=== PATIENT | male | born 1965 | race Caucasian/White ===

== ENCOUNTER 2020-09-08 15:36 | Emergency (ER) | payer MEDICAID, SELFPAY ==
[2020-09-08 15:45] VITALS: BP 134/89; PULSE 93; RESP 18; O2SAT 94; BMI 27.1
--- NOTE | 2020-09-08 16:30 | ECG_ITS ---
Test Reason : ETOH Blood Pressure : / mmHG Vent. Rate : 116 BPM Atrial Rate : 116 BPM P-R Int : 142 ms QRS Dur : 090 ms QT Int : 336 ms P-R-T Axes : 041 043 059 degrees QTc Int : 467 ms Sinus tachycardia Nonspecific ST and T wave abnormality Borderline ECG No previous ECGs available Referred By: Chela Zepeda Electronically Signed By:LALY BUSTILLO
--- NOTE | 2020-09-08 16:48 | ED_ITS ---
HPI - Alcohol General Chief Complaint: ETOH/Substance Use Stated Complaint: etoh Time Seen by Provider: 09/08/20 16:26 Source: patient and family Mode of arrival: ambulatory Limitations: no limitations History of Present Illness HPI narrative: 54-year-old male here with alcohol intoxication. He is here with family revised most of history. They tell me that for quite some time patient has been drinking 2-3 pt of hard liquor daily. His last use was just prior to arrival. He has not been eating or drinking much regular water and food. He denies additional substance use. There is no history of trauma or falls. He has been complaining of vague suicidal ideations per the sister and he admits to this today. Denies plan. No HI or hallucinations. He is seeking detox Related Data Allergies Allergy/AdvReac Type Severity Reaction Status Date / Time No Known Allergies Allergy Verified 09/08/20 15:45 [No Known Allergies*] Review of Systems Review of Systems: Yes all other systems are reviewed and are negative Constitutional: Constitutional: Reports no additional constitutional complaints, Denies body ache(s), Denies chills, Denies fever(s), Denies headache(s) and Denies weakness Eyes: Eyes: Reports no additional eye complaints and Denies change in vision ENT: Reports system reviewed and no additional complaints, except as documented, Denies dizziness, Denies headache(s), Denies nasal congestion, Denies nasal discharge and Denies neck pain Cardiovascular: Cardiovascular: Reports no additional cardiovascular complaints, Denies chest pain, Denies leg edema and Denies dyspnea Respiratory: Respiratory: Reports no additional respiratory complaints, Denies cough and Denies dyspnea Gastrointestinal: Gastrointestinal: Reports no additional gastrointestinal complaints, Denies abdominal pain, Denies diarrhea, Denies nausea and Denies vomiting Genitourinary: Genitourinary: Denies urinary incontinence Musculoskeletal: Musculoskeletal: Reports no additional musculoskeletal complaints, Denies back pain, Denies arthralgias, Denies joint swelling, Denies neck pain, Denies numbness and Denies tingling Integumentary/Breasts: Skin/Breast: Reports system reviewed and no additional complaints, except as docu and Denies rash Neurologic: Reports system reviewed and no additional complaints, except as documented, Denies Abnormal speech present, Denies dizziness, Denies headache(s) , Denies numbness, Denies tingling and Denies weakness Psychiatric: Psychiatric: Denies anxiety, Denies depression, Denies hallucinations, Denies tactile hallucinations, Denies homicidal ideation and Reports suicidal ideation [facility] Past Medical History Attestation statement: The following information was validated with the patient. Source: old records reviewed and nursing notes reviewed Medical History H/O alcohol dependence PTSD (post-traumatic stress disorder) Social History Social History Advance Directives: No Advance Directives Information Provided: Yes Physical Exam Vital Signs: Vital Signs: Last Vital Signs Temp 97.8 F 09/08/20 20:41 Pulse 118 H 09/08/20 20:41 Resp 16 09/08/20 20:41 BP 139/91 H 09/08/20 20:41 Pulse Ox 99 09/08/20 20:41 Body Mass Index 27.1 Const: Other: +alcohol on breath General: cooperative and comfortable Orientation/consciousness: patient oriented x3 Limitations: no limitations HENMT: Head: Yes normal to inspection Ears: hearing grossly normal bilaterally General nose exam: Normal external nose present Face and sinus: Yes normal facial exam Mouth: Normal oral and palatal mucosa present Throat: Yes posterior oropharynx normal Eyes: General: appearance normal, both eyes and all related structures Pupils: Equal, round and reactive pupils present Neck: Neck: Yes normal visual inspection Chest: Chest palpation & inspection: normal inspection of the chest Resp: Effort & Inspection: normal respiratory effort Auscultation: clear to auscultation bilaterally Cardio: Rate: regular rate Rhythm: regular rhythm Peripheral pulses: Peripheral pulses 2+ throughout GI: Inspection: Yes normal to inspection Palpation (GI): Soft to palpation and nontender Auscultation: normal bowel sounds Back/Spine/Pelvis: Thoracic/Lumbar Spine: thoracic and lumbar spine normal to inspection Skin: General skin exam: no rashes or lesions noted Neuro: General: patient oriented x3, no focal motor deficits and normal sensation to monofilament Cranial nerves: Yes Equal, round and reactive pupils present Cognition (Neuro): normal cognition Speech: No Abnormal speech present Gait exam (Neuro): Normal gait present Motor exam (neuro): 5/5 motor strength present throughout Extrem: General: Yes normal to inspection Course Course Course Narrative: Patient here with alcohol intoxication, history of drinking every day for quite some time seeking detox. Also vague SI. No physical complaints. No reports of trauma. Will check labs, EKG, drug screen. Will have crisis come evaluate patient once he is clinically sober. 1849-Labs show alcohol level 375. pt has refused EKG and LEWIS. Wanting to leave multiple times, responds well to re-direction. Given Ativan for anxiety. Section 12 placed on chart. Patient placed in physican observation pending sober re- eval, discussion with crisis. Per sister patient has bed at [facility] in [place] once medically cleared however d/t SI statements will need crisis evaluation. 2099-Sign out to night team pending above. MDM - Alcohol Medical Records Attestation: I reviewed the patient's medical records. Lab Data Attestation: I reviewed the patient's lab results. Result diagrams: 09/08/20 16:47 09/08/20 16:47 Labs: Lab Results 09/08/20 09/08/20 09/08/20 Range/Units 16:47 16:47 16:47 WBC 10.1 (4.8-10.8) X10*3/uL RBC 6.21 H (4.60-5.80) X10*6/uL Hgb 17.6 (14.0-18.0) g/dl Hct 51.6 (42-52) % MCV 83.1 (80-98) fL MCH 28.3 (27.0-33.0) pg MCHC 34.1 (31.0-36.0) g/dl RDW 13.9 (11.0-16.0) % Plt Count 283 (160-400) X10*3/uL MPV 9.2 L (9.4-12.4) fL Immature Gran % (Auto) 0.3 (0.0-0.4) % Neut % (Auto) 57.5 (45-73) % Lymph % (Auto) 33.9 (20-40) % Gilliam % (Auto) 5.0 (2-11) % Eos % (Auto) 2.5 (0-4) % Baso % (Auto) 0.8 (0-2) % Lymph # (Auto) 3.4 (1.2-4.9) X10*3/uL Gilliam # (Auto) 0.5 (0.1-1.2) X10*3/uL Eos # (Auto) 0.3 (0.0-0.4) X10*3/uL Baso # (Auto) 0.1 (0.0-0.2) X10*3/uL Abs Immat Gran (auto) 0.03 (0.00-0.03) X10*3/uL Absolute Neuts (auto) 5.8 (2.0-8.3) X10*3/uL Absolute Nucleated RBC 0.000 (0.0-0.012) X10*3/uL Nucleated RBC % (auto) 0.0 (0.0-0.2) /100WBC Sodium 143 (135-145) mmol/L Potassium 4.1 (3.3-5.1) mmol/L Chloride 99 (96-108) mmol/L Carbon Dioxide 24 (22-29) mmol/L Anion Gap 24 H (12-20) BUN 12 (9-16) mg/dL Creatinine 1.02 (0.5-1.4) mg/dL Estim Creat Clear Calc 92.9 Estimated GFR > 60 Random Glucose 89 (60-115) mg/dL Calcium 8.9 (8.4-10.2) mg/dL Magnesium 2.2 (1.6-2.6) mg/dL Total Bilirubin 0.7 (0.0-1.0) mg/dL Direct Bilirubin 0.3 (0.0-0.5) mg/dL AST 31 (5-37) U/L ALT 28 (0-40) U/L Alkaline Phosphatase 64 (39-117) U/L Total Protein 8.0 (6.5-8.0) g/dL Albumin 4.6 (3.5-5.0) g/dL Ethyl Alcohol 375 H* mg/dL ECG Data Attestation: I personally reviewed and interpreted this ECG as follows: ECG interpretation date: 09/08/20 ECG interpretation time: 20:50 Interpretation: ST with rate 116, normal AL, normal QRS, normal QT Discharge Plan Discharge Clinical Impression: Alcoholic intoxication, Suicidal ideations
[2020-09-08] MEDS: Folic Acid 1 MG TABLET PO (16:51)
[2020-09-08] MEDS: Thiamine HCL 100 MG TABLET PO (16:52)
[2020-09-08] MEDS: 0.9 % Sodium Chloride 1,000 ML 999 ML IV (16:52)
[2020-09-08 16:53] LABS: MANUAL DIFF FLAG NO
--- NOTE | 2020-09-08 16:53 | PC.NURSE ---
patient awake/alert to person at this time, patient sister is at bedside trying to calm patient and prevent him from leaving, with assist of another rn, this nurse was able to place iv and start fluids, pt medicated per order, pt refusing to change into hospital attire at this time- security staff searched patient to ensure there was nothing in his clothing, will attempt to do changeover again later, will continue to monitor.
[2020-09-08 16:54] LABS: Basophils Absolute Auto 0.1 X10*3/uL (0.0-0.2); Basophils Percent Auto 0.8 % (0-2); Eosinophils Absolute Auto 0.3 X10*3/uL (0.0-0.4); Eosinophils Percent Auto 2.5 % (0-4); Hematocrit 51.6 % (42-52); Hemoglobin 17.6 g/dl (14.0-18.0); Imm Gran Abs Auto 0.03 X10*3/uL (0.00-0.03); Imm Gran Pct Auto 0.3 % (0.0-0.4); Lymphocytes Absolute Auto 3.4 X10*3/uL (1.2-4.9); Lymphocytes Percent Auto 33.9 % (20-40); Mean Corpuscular HGB Conc 34.1 g/dl (31.0-36.0); Mean Corpuscular Hemoglobin 28.3 pg (27.0-33.0); Mean Corpuscular Volume 83.1 fL (80-98); Mean Platelet Volume 9.2 fL (9.4-12.4); Monocytes Absolute Auto 0.5 X10*3/uL (0.1-1.2); Neutrophils Absolute Auto 5.8 X10*3/uL (2.0-8.3); Neutrophils Percent Auto 57.5 % (45-73); Platelet Count 283 X10*3/uL (160-400); Red Blood Count 6.21 X10*6/uL (4.60-5.80); Red Cell Distribution Width 13.9 % (11.0-16.0); White Blood Count 10.1 X10*3/uL (4.8-10.8)
--- NOTE | 2020-09-08 17:08 | PC.NURSE ---
attempt to do ekg on patient twice ,patient refused ,nurse basim and supervisor stripping Justine aware .
[2020-09-08 17:16] LABS: Ethanol 375 mg/dL
[2020-09-08 17:27] LABS: Alanine Aminotransferase 28 U/L (0-40); Albumin Level 4.6 g/dL (3.5-5.0); Alkaline Phosphatase 64 U/L (39-117); Anion Gap 24 (12-20); Aspartate Amino Transferase 31 U/L (5-37); Bilirubin Direct 0.3 mg/dL (0.0-0.5); Bilirubin Total 0.7 mg/dL (0.0-1.0); Blood Urea Nitrogen 12 mg/dL (9-16); Calcium 8.9 mg/dL (8.4-10.2); Carbon Dioxide 24 mmol/L (22-29); Chloride 99 mmol/L (96-108); Creatinine Clr Calc Pharmacy 92.9; Estimated Glomerular Filt Rate > 60; Glucose Random 89 mg/dL (60-115); Magnesium 2.2 mg/dL (1.6-2.6); Potassium 4.1 mmol/L (3.3-5.1); Sodium 143 mmol/L (135-145)
[2020-09-08] MEDS: LORazepam 2 MG/ML VIAL 1 MG IVPUSH ×2 (17:54→18:00)
[2020-09-08 18:00] VITALS: RESP 18
[2020-09-08] MEDS: Nicotine 21 MG PATCH.TD24 TRANSDERMA (18:00)
[2020-09-08] MEDS: LORazepam 1 MG TABLET 2 MG PO (19:49)
--- NOTE | 2020-09-08 19:49 | PC.NURSE ---
pt continuously refusing ekg and to get changed into hospital attire, pt attempting to leave has been section 12 by provider, pts iv site was removed per provider, pt medicated with po ativan and given a sandwich to eat.
[2020-09-08 20:28] VITALS: RESP 20
--- NOTE | 2020-09-08 20:29 | PC.NURSE ---
pt refusing vitals, attempted to leave- security brought patient back to bed, 1:1 sitter at bedside, no c/o pain or discomfort, pt ate a sandwich and drank some apple juice, will continue to monitor
[2020-09-08 20:41] VITALS: BP 139/91; PULSE 118; RESP 16; TEMP 36.6; O2SAT 99
--- NOTE | 2020-09-08 20:41 | MHC.RECOVSUP ---
Recovery Support o Current location: [facility] o Identified substance use concern: Alcohol <del>-</del> <del>Overdose</del> <del>-</del> <del>Withdrawal</del> - Seeking ATS (detox) - Support ? Intervention: <del>o</del> <del>ATS</del> <del>bed</del> <del>search</del> <del>started/completed/in</del> <del>process</del> <del>o</del> <del>MAT</del> <del>started</del> <del>or</del> <del>to</del> <del>be</del> <del>started</del> <del>o</del> <del>Community</del> <del>resources</del> <del>provided</del> <del>o</del> <del>Harm</del> <del>reduction</del> <del>discussion</del> ? Plan: <del>o</del> <del>Referral</del> <del>to</del> <del>[facility]</del> <del>o</del> <del>Bed</del> <del>search</del> <del>in</del> <del>progress</del> <del>to</del> o Follow up tomorrow o Patient awaiting crisis evaluation <del>o</del> <del>Patient</del> <del>to</del> <del>follow</del> <del>up</del> <del>with</del> <del>[facility]</del> <del>after</del> <del>discharge</del> ? Additional information: I was able to engage just a bit with pt. Pt currently has a sitter at his bed side because of hi SI. I was not able to gather much info except that he is a and that he has a bed available at the ED in [place]. pt is interested in going to ATS but he has to first be evaluated. If he is still here in the am, it would benefit him for someone to follow up
--- NOTE | 2020-09-08 20:42 | PC.NURSE ---
KD CERDA AWARE OF PATIENT HIGH HEART RATE .
[2020-09-08 22:15] VITALS: RESP 19
--- NOTE | 2020-09-08 22:16 | PC.NURSE ---
patient currently sleeping 1:1 sitter at bedside, rr 19, will continue to monitor
--- NOTE | 2020-09-08 23:17 | PC.NURSE ---
Report received. PT is sleeping in bed. Respirations even and unlabored. PT waiting to be seen by N.
--- NOTE | 2020-09-08 23:38 | PC.NURSE ---
PT woke up, calm and cooperative. PT still endorsing SI statements. This nurse informed the PT that he would be seen by [facility] later on.
[2020-09-09] MEDS: LORazepam 1 MG TABLET 2 MG PO ×2 (00:57→06:10)
[2020-09-09 03:27] VITALS: RESP 16
[2020-09-09 03:54] LABS: Amphetamine Screen Urine Not Detected (Not Detect); Barbiturates, Urine Not Detected (Not Detect); Benzodiazepines Screen Urine Not Detected (Not Detect); Cannabinoid Screen Urine Not Detected (Not Detect); Cocaine Screen Urine Not Detected (Not Detect); Opiate Screen Urine Not Detected (Not Detect); Phencyclidine Screen Urine Not Detected (Not Detect)
[2020-09-09 04:00] VITALS: RESP 18
--- NOTE | 2020-09-09 04:13 | PC.NURSE ---
SEVERAL ATTEMPT WAS MADE TO HAVE PATIENT CASH MANAGEMENT SPECIALIST INTO HOSPITAL ATTIRE ,AND PATIENT REFUSED KD CROSS SAID LET PATIENT SLEEP WILL TRY AT 6AM .
--- NOTE | 2020-09-09 05:48 | PC.NURSE ---
PT's sister called for update. Consent to speak with sibling was given to this nurse by the PT. Sister informed this nurse that the PT had lost his job 2 years ago and has been very depressed and suicidal since that occurred. Sister stated that PT has gone through alcohol addiction rehab before but he continues to drink. PT also drinks and starts to make suicidal statements. Sister is unaware if her brother has access to firearms. PT is also a .
[2020-09-09 05:52] VITALS: BP 157/91; PULSE 122; RESP 18; TEMP 36.9; O2SAT 94
--- NOTE | 2020-09-09 05:53 | PC.NURSE ---
KD CROSS IS AWARE OF PATIENT HIGH HEART RATE
--- NOTE | 2020-09-09 06:18 | PC.NURSE ---
PT woke up with hypertension and tachycardia. CIWA score was an 8 after assessment. Ativan was ordered to manage alcohol withdrawal symptoms.
--- NOTE | 2020-09-09 07:42 | PC.NURSE ---
PT RESTING ON STRETCHER, WAITING FOR [facility] FOR DETOX OPTIONS
--- NOTE | 2020-09-09 09:32 | PC.NURSE ---
returned call to sister, left VM
[2020-09-09 10:00] VITALS: BP 148/72; PULSE 92; RESP 18; TEMP 36.9; O2SAT 96
--- NOTE | 2020-09-09 11:33 | PC.NURSE ---
seen by care team waiting for plan
--- NOTE | 2020-09-09 12:21 | MHC.CARE ---
Pt is a 54 yro male who presented to [facility] on 09/09/20 at 1624 due to ETOH intoxication and reported vague suicidal statements at triage. Pts BAL was 375 at 1647. CARE team accepted the case this am due to [facility] not able to send staff. N alerted to this. Pt was resting quietly in 6H. T/w met w pt this am and he reported feeling much better this am. Pt reported that he relapsed on ETOH after losing his job a few weeks ago. Pt stated he felt ashamed of this which caused him to feel depressed and use ETOH. Pt stated he was able to abstain from ETOH for 7 months while working. Pt then felt he was embarrassed to tell his family but told them a few days ago. Pts sister, mother, and daughter are all local and supportive in pts life. CARE team spoke with pts sister Kari after meeting with pt. She added that they will support pt in any way that they can and have helped in his years of recovery. They have helped pt in his past detox admissions and in OP and IOP efforts. Pt reported that he was helped in prior detox admissions on a temp basis but does not find OP tx helpful. Pt has also tried mental health counseling but does not feel that was the right fit with 3 different providers. CARE suggested pt consider working with a quality assurance coach in an effort for further support. Pt was willing to speak with a motor coach bus driver while here and met with Will. Pt also was open to speaking with Addictions Nurse Silvia for added consultation with strong encouragement of detox referral. Pt was polite and calm but declined referral to detox or any other formal referral. Pt stated he feels good and firmly declined desire to seek detox at this time. Pt stated he feels he has an awareness of when he needs detox and will seek help when needed. Pt denied feeling sad, depressed, or suicidal. Pt denied feeling homicidal having aggressive thoughts/urges. ED provider aware of CARE team consultation with pt and plan is to dc.
--- NOTE | 2020-09-09 12:22 | MHC.RECOVRN ---
T/w met with pt at request of CARE Team after patient declined ATS services. Pt reports having been numerous times and does not wish to go again. Pt reports having been in recovery since December 2019 and began drinking approx 2 weeks ago after losing his job. Pt explained to t/w that he has tried many avenues for recovery including IOP, therapy, and medication for alcohol use disorder. Pt reports receiving Vivitrol May 2019, Jun and Jul 2019. Pt reports that it did not decrease cravings and patient continued to use alcohol. Pt reports after trying so many things, the biggest aid to his recovery is work. Pt is looking forward to finding employment. T/w discussed the risks of withdrawal with pt and the benefits of going to ATS. Pt continues to decline. Pt was given t/w card if pt wishes to discuss recovery options further.
== END 2020-09-09 13:02 | disposition home or self-care (01) ==
PROVIDERS: Nurse Practitioner Family; Emergency Provider Internal Medicine
DX: F10.129 Alcohol abuse with intoxication, unspecified (principal); R45.851 Suicidal ideations; F43.10 Post-traumatic stress disorder, unspecified; F41.1 Generalized anxiety disorder; F43.0 Acute stress reaction; Z71.41 Alcohol abuse counseling and surveillance of alcoholic
CPT/HCPCS: 36415; 80048; 80076; 80307; 80320; 83735; 85025; 93005; 96365; 96375; 99285; J2060

== ENCOUNTER 2020-10-15 04:54 | Emergency (ER) | payer MEDICAID, SELFPAY ==
--- NOTE | ~2020-10-15 | XR_ITS ---
EXAMINATION: XR CHEST CLINICAL INFORMATION: Cough. Chest pain. Rule out pneumonia. COMPARISON: None TECHNIQUE: 2 views of the chest were obtained. FINDINGS: The lungs are well expanded. There is no focal consolidation, edema, or effusion. No pneumothorax. The cardiomediastinal silhouette is within normal limits. No acute osseous abnormality. XR/XR chest 2V IMPRESSION: Clear lungs.
--- NOTE | 2020-10-15 06:36 | ECG_ITS ---
Test Reason : CHEST PAIN Blood Pressure : / mmHG Vent. Rate : 124 BPM Atrial Rate : 124 BPM P-R Int : 096 ms QRS Dur : 084 ms QT Int : 316 ms P-R-T Axes : 003 042 057 degrees QTc Int : 453 ms Sinus tachycardia with short NC Otherwise normal ECG When compared with ECG of 08-SEP-2020 20:50, No significant change was found Referred By: Zachary Rodríguez Electronically Signed By:LULY HUBER MD
--- NOTE | 2020-10-15 06:37 | ED_ITS ---
HPI - General Adult General Chief complaint: ETOH/Substance Use Stated complaint: Vomiting/Alcohol withdrawal Time Seen by Provider: 10/15/20 06:21 Source: patient Mode of arrival: ambulatory Limitations: no limitations History of Present Illness HPI narrative: 54-year-old male who presents emergency department for evaluation of nausea, vomiting, chest pain, cough and alcohol withdrawal. The patient has a history of alcohol use disorder. He states that he has been binge drinking for at least 1 week. Drinks 1.75 L of vodka per day. He states that since Tuesday, 3 days prior to evaluation, he has been vomiting. He has not been able to eat or drink since the vomiting began. States that he vomits multiple t imes a day and occasionally has noted some peak blood in his vomit. He complains of midsternal chest burning which he states has been intermittent over the past 3 days. He is also complaining of diffuse, abdominal cramping which is moderate to severe intensity is also intermittent. States that he is withdrawing from alcohol and can not stop shaking. Patient states that he had 9 months of sobriety last year after getting into a detox program. He states that he is not interested in getting into detox at this time. States that he has a cough x3 days which is nonproductive, he feels short of breath and has some mild dyspnea on exertion. He has not had any change in his bowel movements. The patient has not had a COVID-19 infection. He has not been vaccinated for COVID-19. Related Data Previous Rx's Medication Instructions Recorded chlordiazepoxide HCl 50 mg PO Q4H PRN #12 cap 09/09/20 chlordiazepoxide HCl 50 mg PO TID 4 Days #24 cap 10/15/20 ondansetron 4 mg PO Q6-8H PRN #14 tab 10/15/20 Allergies Allergy/AdvReac Type Severity Reaction Status Date / Time No Known Allergies Allergy Verified 09/08/20 15:45 [No Known Allergies*] Review of Systems Review of Systems: Yes all other systems are reviewed and are negative [facility] Past Medical History [facility] Narrative: The patient smokes less than 1 pack of cigarettes per day times 42 years, he drinks alcohol daily and has been binge drinking for 1 week, he drinks 1.75 L of vodka per day. Patient denies current drug use but he has a history of prescription opiate abuse. He states that he has been on Suboxone in the past and stopped using Suboxone in 2011. Medical History H/O alcohol dependence PTSD (post-traumatic stress disorder) Social History Social History Alcohol intake: current Alcohol type: hard liquor Smoking Status: Current every day smoker Use of substances other than those prescribed or required for medical reasons: No Advance Directives: No Physical Exam Vital Signs: Vital Signs: Last Vital Signs Pulse 119 H 10/15/20 08:32 Resp 18 10/15/20 08:32 BP 137/90 H 10/15/20 08:32 Pulse Ox 95 10/15/20 08:32 Body Mass Index 32.5 Const: General: cooperative and other ( very tremulous) Orientation/consciousness: oriented to person and oriented to place Limitations: no limitations HENMT: Head: Yes normal to inspection, Yes normocephalic and Yes atraumatic Ears: external ears normal General nose exam: Normal external nose present Face and sinus: Yes normal facial exam Mouth: Normal oral and palatal mucosa present Throat: Yes posterior oropharynx normal Eyes: Periorbital: periorbital findings normal Eyelids: Yes eyelids normal Conjunctivae: conjunctivae normal Sclerae: sclerae normal Corneas: corneas normal Pupils: Equal, round and reactive pupils present Direct Ophthalmoscopy: normal light reflex Neck: Neck: Yes full ROM, Yes no lymphadenopathy, Yes no meningeal signs, Yes trachea midline and Yes supple Chest: Chest palpation & inspection: normal inspection of the chest and tenderness ( moderate midsternal) Resp: Effort & Inspection: normal respiratory effort and able to speak in complete sentences Auscultation: clear to auscultation bilaterally Cardio: Rate: tachycardic Rhythm: regular rhythm Heart sounds: S1 normal heart sound present, S2 normal heart sound present and no murmurs GI: Inspection: Yes normal to inspection Palpation (GI): Soft to palpation, Tenderness to palpation present (GI) in the epigastrum ( moderate), in the LLQ ( mild), in the RLQ ( mild) and in the LUQ ( mild), no guarding, not rigid and No hepatosplenomegaly present : General: Yes no CVA tenderness Back/Spine/Pelvis: Back: no CVA tenderness Cervical Spine: normal cervical lordosis Thoracic/Lumbar Spine: thoracic and lumbar spine normal to inspection Skin: Lesions: no lesions Rashes: no rashes Wounds: no wounds Neuro: General: oriented to person, oriented to place and no meningeal signs Cranial nerves: Yes CN's II-XII intact bilaterally and Yes Equal, round and reactive pupils present Cognition (Neuro): normal cognition Motor exam (neuro): 5/5 motor strength present throughout Extrem: General: Yes normal to inspection and Yes full ROM Psych: Appearance: well kempt Mental Status: mental status grossly normal Speech and movement: Normal speech and movement present Affect: normal affect Attitude: cooperative Thought process: Normal thought process present Thought content: Normal thought content present Course Course Course Narrative: 54-year-old male with a history of alcohol use disorder, he has been binge drinking for 1 week, consume a 1.75 L of vodka per day, presents with chest pain, cough, abdominal pain and vomiting x3 days. Physical examination revealed evidence of alcohol withdrawal with tremulousness and tachycardia. He did have tenderness with palpation of his sternum and abdomen in the mid epigastric and lower abdominal regions. I did order workup to include CBC, CMP, lipase, troponin, EKG, chest x-ray , COVID-19 testing. he was also ordered to get normal saline x1 L, Ativan 2 mg IV, Zofran 4 mg IV. 0902: The patient is feeling significantly better after the above treatment. Patient's laboratory evaluation is consistent with his alcohol use disorder, he has a low platelet count of a [id number], elevated AST and ALT of 126 and 88 and an elevated bilirubin of 2.2. Gets some minor electrolyte abnormalities as well. Chest x-ray was negative and COVID-19 test was negative. I did discuss these abnormalities with his alcohol use is starting to affect his health and his liver. The patient does not want any counseling at this point refused to be with the manager disaster recovery. He states that he has a list of detox programs at home but he is not interested in pursuing detox at a facility and would rather try to detox on his own. The patient will be prescribed a limited dose of Librium to try to help him through his withdrawal symptoms. Will also be prescribed Zofran 4 mg ODT every 6 hours as needed for nausea and vomiting. [facility] search revealed 2 previous prescriptions for Librium , with the last prescription being 1 month prior. Given his potential for alcohol withdrawal, feel that prescribing another prescription for Librium is appropriate. Medical Decision Making Lab Data Result diagrams: 10/15/20 07:19 10/15/20 07:19 Labs: Lab Results 10/15/20 10/15/20 10/15/20 Range/Units 07:19 07:19 07:19 WBC 10.9 H (4.8-10.8) X10*3/uL RBC 5.74 (4.60-5.80) X10*6/uL Hgb 16.9 (14.0-18.0) g/dl Hct 47.9 (42-52) % MCV 83.4 (80-98) fL MCH 29.4 (27.0-33.0) pg MCHC 35.3 (31.0-36.0) g/dl RDW 13.8 (11.0-16.0) % Plt Count 102 L D (160-400) X10*3/uL MPV 11.2 (9.4-12.4) fL Immature Gran % (Auto) 0.6 H (0.0-0.4) % Neut % (Auto) 78.6 H (45-73) % Lymph % (Auto) 14.2 L (20-40) % [place] % (Auto) 6.2 (2-11) % Eos % (Auto) 0.2 (0-4) % Baso % (Auto) 0.2 (0-2) % Lymph # (Auto) 1.5 (1.2-4.9) X10*3/uL [place] # (Auto) 0.7 (0.1-1.2) X10*3/uL Eos # (Auto) 0.0 (0.0-0.4) X10*3/uL Baso # (Auto) 0.0 (0.0-0.2) X10*3/uL Abs Immat Gran (auto) 0.07 H (0.00-0.03) X10*3/uL Absolute Neuts (auto) 8.6 H (2.0-8.3) X10*3/uL Absolute Nucleated RBC 0.000 (0.0-0.012) X10*3/uL Nucleated RBC % (auto) 0.0 (0.0-0.2) /100WBC Sodium 132 L (135-145) mmol/L Potassium 3.6 (3.3-5.1) mmol/L Chloride 89 L (96-108) mmol/L Carbon Dioxide 30 H (22-29) mmol/L Anion Gap 17 (12-20) BUN 15 (9-16) mg/dL Creatinine 1.06 (0.5-1.4) mg/dL Estim Creat Clear Calc 103.8 Estimated GFR > 60 Random Glucose 130 H D (60-115) mg/dL Calcium 10.4 H D (8.4-10.2) mg/dL Total Bilirubin 2.2 H (0.0-1.0) mg/dL AST 126 H (5-37) U/L ALT 88 H (0-40) U/L Alkaline Phosphatase 74 (39-117) U/L Troponin I High Sens (<3.5-35.0) ng/L Total Protein 7.8 (6.5-8.0) g/dL Albumin 4.5 (3.5-5.0) g/dL Lipase 86 H (8-78) U/L Ethyl Alcohol < 10 mg/dL COVID-19 ([facility]ASHA) (Negative) COVID-19 Clin Com 10/15/20 10/15/20 10/15/20 Range/Units 07:19 07:19 07:20 WBC (4.8-10.8) X10*3/uL RBC (4.60-5.80) X10*6/uL Hgb (14.0-18.0) g/dl Hct (42-52) % MCV (80-98) fL MCH (27.0-33.0) pg MCHC (31.0-36.0) g/dl RDW (11.0-16.0) % Plt Count (160-400) X10*3/uL MPV (9.4-12.4) fL Immature Gran % (Auto) (0.0-0.4) % Neut % (Auto) (45-73) % Lymph % (Auto) (20-40) % [place] % (Auto) (2-11) % Eos % (Auto) (0-4) % Baso % (Auto) (0-2) % Lymph # (Auto) (1.2-4.9) X10*3/uL [place] # (Auto) (0.1-1.2) X10*3/uL Eos # (Auto) (0.0-0.4) X10*3/uL Baso # (Auto) (0.0-0.2) X10*3/uL Abs Immat Gran (auto) (0.00-0.03) X10*3/uL Absolute Neuts (auto) (2.0-8.3) X10*3/uL Absolute Nucleated RBC (0.0-0.012) X10*3/uL Nucleated RBC % (auto) (0.0-0.2) /100WBC Sodium (135-145) mmol/L Potassium (3.3-5.1) mmol/L Chloride (96-108) mmol/L Carbon Dioxide (22-29) mmol/L Anion Gap (12-20) BUN (9-16) mg/dL Creatinine (0.5-1.4) mg/dL Estim Creat Clear Calc Estimated GFR Random Glucose (60-115) mg/dL Calcium (8.4-10.2) mg/dL Total Bilirubin (0.0-1.0) mg/dL AST (5-37) U/L ALT (0-40) U/L Alkaline Phosphatase (39-117) U/L Troponin I High Sens 11.7 (<3.5-35.0) ng/L Total Protein (6.5-8.0) g/dL Albumin (3.5-5.0) g/dL Lipase Cancelled (8-78) U/L Ethyl Alcohol mg/dL COVID-19 ([facility]ASHA) Negative (Negative) COVID-19 Clin Com See Note Discharge Plan Discharge Clinical Impression: Acute dehydration, Abnormality in other liver function test Alcohol withdrawal syndrome Qualifiers: Complication of substance-induced condition: uncomplicated Qualified Code(s): F10.230 - Alcohol dependence with withdrawal, uncomplicated Vomiting Qualifiers: Vomiting type: unspecified Vomiting Intractability: non-intractable Nausea presence: with nausea Qualified Code(s): R11.2 - Nausea with vomiting, unspe cified Patient Disposition: Home, Self-Care Instructions: Alcohol Withdrawal (ED) Additional Instructions: Your liver tests are abnormal, your platelet count is low, these are signs that the alcohol that you are drinking is starting to affect your health and is damaging your liver. If you continue to drink like this you will develops cirrhosis of the liver. You chest x-ray was normal with no evidence of pneumonia. Your COVID-19 test was negative. You should consider getting into detox program to help with your alcohol use disorder and consider attending AA meetings to try to help get sobriety. Take Librium 50 mg pills, 1 pill 3 times a day for 5 days. This will help you with your alcohol withdrawal symptoms. Do not drink alcohol while taking Librium. Take Zofran (ondansetron) 4 mg pills, 1 pill dissolved in your mouth every 6-8 hours as needed for nausea and vomiting Follow-up with your doctor in 2 days. Please return to the emergency department if your symptoms get worse or if you develop any symptoms that are concerning to you. Prescriptions: New chlordiazepoxide HCl 25 mg capsule 50 mg PO TID 4 Days Qty: 24 RF: 0 ondansetron 4 mg tablet,disintegrating 4 mg PO Q6-8H PRN (Reason: nausea and vomiting) Qty: 14 RF: 0 No Action chlordiazepoxide HCl 25 mg capsule 50 mg PO Q4H PRN (Reason: alcohol withdrawal) Qty: 12 RF: 0
[2020-10-15 06:38] VITALS: BMI 32.5
[2020-10-15 07:26] LABS: Basophils Percent Auto 0.2 % (0-2); Hematocrit 47.9 % (42-52); Mean Corpuscular Volume 83.4 fL (80-98); Red Blood Count 5.74 X10*6/uL (4.60-5.80); Red Cell Distribution Width 13.8 % (11.0-16.0)
[2020-10-15] MEDS: ondansetron HCL 4 MG/2 ML VIAL IVPUSH (07:26)
[2020-10-15] MEDS: 0.9 % Sodium Chloride 1,000 ML 999 ML IV (07:27)
[2020-10-15] MEDS: LORazepam 2 MG/ML VIAL IVPUSH (07:27)
[2020-10-15 07:28] LABS: Eosinophils Percent Auto 0.2 % (0-4); Hemoglobin 16.9 g/dl (14.0-18.0); Imm Gran Abs Auto 0.07 X10*3/uL (0.00-0.03); Imm Gran Pct Auto 0.6 % (0.0-0.4); Lymphocytes Absolute Auto 1.5 X10*3/uL (1.2-4.9); Lymphocytes Percent Auto 14.2 % (20-40); Mean Corpuscular HGB Conc 35.3 g/dl (31.0-36.0); Mean Corpuscular Hemoglobin 29.4 pg (27.0-33.0); Mean Platelet Volume 11.2 fL (9.4-12.4); Monocytes Absolute Auto 0.7 X10*3/uL (0.1-1.2); Monocytes Percent Auto 6.2 % (2-11); Neutrophils Absolute Auto 8.6 X10*3/uL (2.0-8.3); Neutrophils Percent Auto 78.6 % (45-73); White Blood Count 10.9 X10*3/uL (4.8-10.8)
[2020-10-15 07:29] VITALS: BP 139/89; PULSE 100; RESP 20; O2SAT 97
[2020-10-15 07:33] LABS: MANUAL DIFF FLAG NO
[2020-10-15 07:43] LABS: COVID-19 Test Negative (Negative)
[2020-10-15 07:54] LABS: Platelet Count 102 X10*3/uL (160-400)
[2020-10-15 07:56] LABS: Ethanol < 10 mg/dL
[2020-10-15 08:07] LABS: Alanine Aminotransferase 88 U/L (0-40); Albumin Level 4.5 g/dL (3.5-5.0); Alkaline Phosphatase 74 U/L (39-117); Anion Gap 17 (12-20); Aspartate Amino Transferase 126 U/L (5-37); Bilirubin Total 2.2 mg/dL (0.0-1.0); Blood Urea Nitrogen 15 mg/dL (9-16); Carbon Dioxide 30 mmol/L (22-29); Chloride 89 mmol/L (96-108); Creatinine Clr Calc Pharmacy 103.8; Estimated Glomerular Filt Rate > 60; Glucose Random 130 mg/dL (60-115); Lipase 86 U/L (8-78); Potassium 3.6 mmol/L (3.3-5.1); Sodium 132 mmol/L (135-145); Total Protein 7.8 g/dL (6.5-8.0); Troponin-I High Sensitivity 11.7 ng/L (<3.5-35.0)
[2020-10-15 08:13] LABS: Calcium 10.4 mg/dL (8.4-10.2)
[2020-10-15 08:32] VITALS: BP 137/90; PULSE 119; RESP 18; O2SAT 95
== END 2020-10-15 09:21 | disposition home or self-care (01) ==
PROVIDERS: Emergency Provider Emergency Medicine Emergency Medical Services
DX: E86.0 Dehydration (principal); F10.230 Alcohol dependence with withdrawal, uncomplicated; R11.2 Nausea with vomiting, unspecified; R94.5 Abnormal results of liver function studies; Y90.0 Blood alcohol level of less than 20 mg/100 ml; F17.200 Nicotine dependence, unspecified, uncomplicated; Z20.822 Contact with and (suspected) exposure to COVID-19; Z79.899 Other long term (current) drug therapy; Z71.6 Tobacco abuse counseling
CPT/HCPCS: 36415; 71046; 80053; 80320; 83690; 84484; 85025; 87635; 93005; 96365; 96375; 99284; J2060; J2405

== ENCOUNTER 2021-11-09 18:07 | Emergency (ER) | payer OTHER, SELFPAY ==
--- NOTE | 2021-11-09 18:20 | ED_ITS ---
HPI - Psych General Chief Complaint: ETOH/Substance Use Stated Complaint: Crisis Time Seen by Provider: 11/09/21 18:16 Source: patient Mode of arrival: ambulatory Limitations: no limitations History of Present Illness HPI Narrative: Patient's history of alcohol abuse drinks walk almost every day been to detox multiple times last time was 1 year ago , he stayed sober for 9 months when drinking vodka about 20 nips a day also history of depression no SI or HI would like to go to detox Related Data Home Medications Medication Instructions Recorded Confirmed No Known Home Meds 11/09/21 11/09/21 Allergies Allergy/AdvReac Type Severity Reaction Status Date / Time No Known Allergies Allergy Verified 09/08/20 15:45 [No Known Allergies*] Review of Systems Review of Systems: Yes all other systems are reviewed and are negative [facility] Past Medical History Medical History H/O alcohol dependence PTSD (post-traumatic stress disorder) Social History Social History Alcohol intake: current Alcohol type: hard liquor Advance Directives: No Advance Directives Information Provided: No Physical Exam Vital Signs: Vital Signs: Last Vital Signs Temp 98.3 F 11/09/21 18:25 Pulse 110 H 11/09/21 18:25 Resp 18 11/09/21 18:25 BP 117/75 11/09/21 18:25 Pulse Ox 96 11/09/21 18:25 BMI result Body Mass Index 33.9 Appearance: Alert. Oriented X3. No acute distress. ETOH++ Eyes: No pallor/ icterus no nystagmus ENT: Pharynx normal. Oral Mucosa moist Neck: Normal inspection. Neck supple. CVS: Normal heart rate and rhythm. Pulses normal. Respiratory: No respiratory distress. Equal air entry bilateral, no wheezing/rales/rhonchi Abdomen: Soft and nontender. Bowel sounds are present, no mass palpable, no CVA tenderness Skin: Skin warm and dry. Normal skin color. Normal skin turgor. Extremities: No lower extremity edema. No calf tenderness Neuro: Oriented X 3. No motor deficit. No sensory deficit.No cerebellar signs , cranial nerves II-XII intact MDM - Psych Lab Data Attestation: I reviewed the patient's lab results. Result diagrams: 11/09/21 19:15 11/09/21 19:15 Labs: Lab Results 11/09/21 11/09/21 11/09/21 Range/Units 18:54 19:15 19:15 WBC 6.5 (4.8-10.8) X10*3/uL RBC 5.07 (4.60-5.80) X10*6/uL Hgb 15.5 (14.0-18.0) g/dl Hct 45.7 (42.0-52.0) % MCV 90.1 (80.0-98.0) fL MCH 30.6 (27.0-33.0) pg MCHC 33.9 (31.0-36.0) g/dl RDW 15.3 (11.0-16.0) % Plt Count 256 (160-400) X10*3/uL MPV 8.7 L (9.4-12.4) fL Immature Gran % (Auto) 0.5 H (0.0-0.4) % Neut % (Auto) 59.2 (45-73) % Lymph % (Auto) 30.5 (20-40) % [place] % (Auto) 5.1 (2-11) % Eos % (Auto) 3.8 (0-4) % Baso % (Auto) 0.9 (0-2) % Lymph # (Auto) 2.0 (1.2-4.9) X10*3/uL [place] # (Auto) 0.3 (0.1-1.2) X10*3/uL Eos # (Auto) 0.3 (0.0-0.4) X10*3/uL Baso # (Auto) 0.1 (0.0-0.2) X10*3/uL Abs Immat Gran (auto) 0.03 (0.00-0.03) X10*3/uL Absolute Neuts (auto) 3.9 (2.0-8.3) x10*3/uL Absolute Nucleated RBC 0.000 (0.0-0.012) X10*3/uL Nucleated RBC % (auto) 0.0 (0.0-0.2) /100WBC Sodium 142 (135-145) mmol/L Potassium 4.4 D (3.3-5.1) mmol/L Chloride 103 (96-108) mmol/L Carbon Dioxide 21 L (22-29) mmol/L Anion Gap 22 H (12-20) BUN 9 (9-16) mg/dL Creatinine 0.91 (0.5-1.4) mg/dL Estim Creat Clear Calc 122.0 Estimated GFR > 60 Random Glucose 89 (60-115) mg/dL Calcium 9.0 D (8.4-10.2) mg/dL Magnesium 2.0 (1.6-2.6) mg/dL Total Bilirubin 0.5 (0.0-1.0) mg/dL AST 145 H (5-37) U/L ALT 104 H (0-40) U/L Alkaline Phosphatase 78 (39-117) U/L Total Protein 7.7 (6.5-8.0) g/dL Albumin 4.3 (3.5-5.0) g/dL Urine Color Urine Appearance Urine pH (5.0-8.0) Ur Specific [place] (1.005-1.025) Urine Protein (NEG-TRACE) MG/DL Urine Glucose (UA) (NEG) MG/DL Urine Ketones (NEG) MG/DL Urine Blood (NEG) Urine Nitrite (NEG) Ur Leukocyte Esterase (NEG) Urine RBC (0) /HPF Urine WBC (0-4) /HPF Ur Squamous Epith Cells /LPF Ur Renal Epithelial Cell /LPF Urine Bacteria /LPF Hyaline Casts /LPF Granular Casts /LPF Urine Mucus /LPF Urine Opiates Screen (Not Detect) Urine Fentanyl Screen (Not Detect) Ur Barbiturates Screen (Not Detect) Ur Phencyclidine Scrn (Not Detect) Ur Amphetamines Screen (Not Detect) U Benzodiazepines Scrn (Not Detect) Urine Cocaine Screen (Not Detect) U Marijuana (THC) Screen (Not Detect) Ethyl Alcohol mg/dL COVID-19 ([facility]) Negative (Negative) COVID-19 Clin Com See Note 11/09/21 11/09/21 11/09/21 Range/Units 19:15 22:33 22:33 WBC (4.8-10.8) X10*3/uL RBC (4.60-5.80) X10*6/uL Hgb (14.0-18.0) g/dl Hct (42.0-52.0) % MCV (80.0-98.0) fL MCH (27.0-33.0) pg MCHC (31.0-36.0) g/dl RDW (11.0-16.0) % Plt Count (160-400) X10*3/uL MPV (9.4-12.4) fL Immature Gran % (Auto) (0.0-0.4) % Neut % (Auto) (45-73) % Lymph % (Auto) (20-40) % [place] % (Auto) (2-11) % Eos % (Auto) (0-4) % Baso % (Auto) (0-2) % Lymph # (Auto) (1.2-4.9) X10*3/uL [place] # (Auto) (0.1-1.2) X10*3/uL Eos # (Auto) (0.0-0.4) X10*3/uL Baso # (Auto) (0.0-0.2) X10*3/uL Abs Immat Gran (auto) (0.00-0.03) X10*3/uL Absolute Neuts (auto) (2.0-8.3) x10*3/uL Absolute Nucleated RBC (0.0-0.012) X10*3/uL Nucleated RBC % (auto) (0.0-0.2) /100WBC Sodium (135-145) mmol/L Potassium (3.3-5.1) mmol/L Chloride (96-108) mmol/L Carbon Dioxide (22-29) mmol/L Anion Gap (12-20) BUN (9-16) mg/dL Creatinine (0.5-1.4) mg/dL Estim Creat Clear Calc Estimated GFR Random Glucose (60-115) mg/dL Calcium (8.4-10.2) mg/dL Magnesium (1.6-2.6) mg/dL Total Bilirubin (0.0-1.0) mg/dL AST (5-37) U/L ALT (0-40) U/L Alkaline Phosphatase (39-117) U/L Total Protein (6.5-8.0) g/dL Albumin (3.5-5.0) g/dL Urine Color DK YELLOW Urine Appearance HAZY Urine pH 5.5 (5.0-8.0) Ur Specific [place] >= 1.030 H (1.005-1.025) Urine Protein 1+ H (NEG-TRACE) MG/DL Urine Glucose (UA) NEG (NEG) MG/DL Urine Ketones 15 (NEG) MG/DL Urine Blood 1+ H (NEG) Urine Nitrite NEG (NEG) Ur Leukocyte Esterase NEG (NEG) Urine RBC 5-9 H (0) /HPF Urine WBC 0-2 (0-4) /HPF Ur Squamous Epith Cells TRACE /LPF Ur Renal Epithelial Cell 2+ /LPF Urine Bacteria NONE /LPF Hyaline Casts 1-4 /LPF Granular Casts 10-14 /LPF Urine Mucus 4+ /LPF Urine Opiates Screen Not Detected (Not Detect) Urine Fentanyl Screen Not Detected (Not Detect) Ur Barbiturates Screen Not Detected (Not Detect) Ur Phencyclidine Scrn Not Detected (Not Detect) Ur Amphetamines Screen Not Detected (Not Detect) U Benzodiazepines Scrn Not Detected (Not Detect) Urine Cocaine Screen Not Detected (Not Detect) U Marijuana (THC) Screen Not Detected (Not Detect) Ethyl Alcohol 321 H* mg/dL COVID-19 ([facility]) (Negative) COVID-19 Clin Com Discharge Plan Discharge Clinical Impression: Alcoholic intoxication Patient Disposition: Still a Patient Prescriptions: No Action No Known Home Meds 0RF
[2021-11-09 18:25] VITALS: BP 117/75; PULSE 110; RESP 18; TEMP 36.8; O2SAT 96; BMI 33.9
[2021-11-09 19:19] LABS: MANUAL DIFF FLAG NO
[2021-11-09 19:20] LABS: COVID-19 Test Negative (Negative)
[2021-11-09 19:22] LABS: Basophils Absolute Auto 0.1 X10*3/uL (0.0-0.2); Basophils Percent Auto 0.9 % (0-2); Eosinophils Absolute Auto 0.3 X10*3/uL (0.0-0.4); Eosinophils Percent Auto 3.8 % (0-4); Hematocrit 45.7 % (42.0-52.0); Hemoglobin 15.5 g/dl (14.0-18.0); Imm Gran Abs Auto 0.03 X10*3/uL (0.00-0.03); Imm Gran Pct Auto 0.5 % (0.0-0.4); Lymphocytes Percent Auto 30.5 % (20-40); Mean Corpuscular HGB Conc 33.9 g/dl (31.0-36.0); Mean Corpuscular Hemoglobin 30.6 pg (27.0-33.0); Mean Corpuscular Volume 90.1 fL (80.0-98.0); Mean Platelet Volume 8.7 fL (9.4-12.4); Monocytes Absolute Auto 0.3 X10*3/uL (0.1-1.2); Monocytes Percent Auto 5.1 % (2-11); Neutrophils Absolute Auto 3.9 x10*3/uL (2.0-8.3); Neutrophils Percent Auto 59.2 % (45-73); Platelet Count 256 X10*3/uL (160-400); Red Blood Count 5.07 X10*6/uL (4.60-5.80); Red Cell Distribution Width 15.3 % (11.0-16.0); White Blood Count 6.5 X10*3/uL (4.8-10.8)
[2021-11-09 19:34] LABS: Ethanol 321 mg/dL
[2021-11-09 19:45] LABS: Alanine Aminotransferase 104 U/L (0-40); Albumin Level 4.3 g/dL (3.5-5.0); Alkaline Phosphatase 78 U/L (39-117); Anion Gap 22 (12-20); Aspartate Amino Transferase 145 U/L (5-37); Bilirubin Total 0.5 mg/dL (0.0-1.0); Blood Urea Nitrogen 9 mg/dL (9-16); Carbon Dioxide 21 mmol/L (22-29); Chloride 103 mmol/L (96-108); Estimated Glomerular Filt Rate > 60; Glucose Random 89 mg/dL (60-115); Potassium 4.4 mmol/L (3.3-5.1); Sodium 142 mmol/L (135-145); Total Protein 7.7 g/dL (6.5-8.0)
[2021-11-09] MEDS: LORazepam 1 MG TABLET 2 MG PO (20:45)
[2021-11-09] MEDS: Nicotine 21 MG PATCH.TD24 TRANSDERMA (20:46)
--- NOTE | 2021-11-09 20:57 | MHC.RECOVSUP ---
Reason for consult o Current location: #7 o Identified substance use concern: ALCOHOL <del>-</del> <del>Overdose</del> <del>-</del> <del>Withdrawal</del> <del>-</del> <del>Seeking</del> <del>ATS</del> <del>(detox)</del> <del>-</del> <del>Support</del> <del>?</del> <del>Intervention:</del> <del>o</del> <del>ATS</del> <del>bed</del> <del>search</del> <del>started/completed/in</del> <del>process</del> <del>o</del> <del>MAT</del> <del>started</del> <del>or</del> <del>to</del> <del>be</del> <del>started</del> <del>o</del> <del>Community</del> <del>resources</del> <del>provided</del> <del>o</del> <del>Harm</del> <del>reduction</del> <del>discussion</del> <del>?</del> <del>Plan:</del> <del>o</del> <del>Referral</del> <del>to</del> <del>[facility]</del> <del>o</del> <del>Bed</del> <del>search</del> <del>in</del> <del>progress</del> <del>to</del> <del>o</del> <del>Follow</del> <del>up</del> <del>tomorrow</del> <del>o</del> <del>Patient</del> <del>awaiting</del> <del>crisis</del> <del>evaluation</del> <del>o</del> <del>Patient</del> <del>to</del> <del>follow</del> <del>up</del> <del>with</del> <del>[facility]</del> <del>after</del> <del>discharge</del> ? Additional information: Attempted to speak with pt but he was not interested and talking at the moment. I was not able to gather any information but I was able to leave with him some helpful recovery resource.
[2021-11-09 22:40] LABS: Appearance Urine HAZY; Color Urine DK YELLOW; Glucose Urine UA NEG (NEG); Leukocyte Esterase Urine NEG (NEG); Nitrite Urine NEG (NEG); PH 5.5 (5.0-8.0); Specific Gravity - Urine >= 1.030 (1.005-1.025); Urine Blood 1+ (NEG); Urine Ketones 15 MG/DL (NEG); Urine Protein 1+ MG/DL (NEG-TRACE)
[2021-11-09 22:48] LABS: Mucus Urine 4+ /LPF; Renal Epithelial Cells Urine 2+ /LPF; Squamous Epithelial Cell Urine TRACE /LPF; WBC Urine 0-2 /HPF (0-4)
[2021-11-09 22:55] LABS: Amphetamine Screen Urine Not Detected (Not Detect); Barbiturates, Urine Not Detected (Not Detect); Benzodiazepines Screen Urine Not Detected (Not Detect); Cannabinoid Screen Urine Not Detected (Not Detect); Cocaine Screen Urine Not Detected (Not Detect); Fentanyl, urine Not Detected (Not Detect); Opiate Screen Urine Not Detected (Not Detect); Phencyclidine Screen Urine Not Detected (Not Detect)
[2021-11-10] MEDS: LORazepam 1 MG TABLET 2 MG PO ×3 (01:32→10:00)
[2021-11-10 06:05] VITALS: BP 141/90; PULSE 106; RESP 17; TEMP 36.8; O2SAT 94
--- NOTE | 2021-11-10 06:05 | PC.NURSE ---
Patient slept through the night, CIWA was 5 at 0605, Ativan 2 mg prn administered x 2 during overnight shift for comfort, behavior appropriate, medication compliant, VSS, awaiting pyridine recovery operator assistance for detox help, will continue to monitor.
[2021-11-10 08:14] VITALS: BP 166/106; PULSE 109; RESP 15; O2SAT 94
--- NOTE | 2021-11-10 10:06 | MHC.RECOVRN ---
Met with pt in [facility] after pt requested ATS placement. Pt reports drinking 1/5 vodka daily x 4 months, last drink Tuesday. When asked about ATS, pt states I'm through the worst of it, I think I'm just going to go home. Pt has been to ATS in the past, declines t/w conducting a bedsearch. Pt has a supportive sister who will transport pt home. Pt plans to re-engage with AA. Declines other recovery support or referrals. Discussed with RN, CARE Team, and provider.
[2021-11-10 10:19] VITALS: BP 147/107; PULSE 122; RESP 18; O2SAT 95
--- NOTE | 2021-11-10 10:42 | PC.NURSE ---
PT SENT TO MAIN ROOM 8 DUE TO HIGH CWIA AND WITHDRAWL.
[2021-11-10 10:45] VITALS: BP 158/101; PULSE 109; RESP 22; TEMP 36.7; O2SAT 94
[2021-11-10 11:22] LABS: Lipase 35 U/L (8-78)
[2021-11-10 11:27] VITALS: BP 166/84; PULSE 94; RESP 20; TEMP 37.1
[2021-11-10] MEDS: ondansetron HCL 4 MG/2 ML VIAL IVPUSH (12:05)
[2021-11-10] MEDS: 0.9 % Sodium Chloride 1,000 ML 999 ML IV ×2 (12:05→12:06)
[2021-11-10] MEDS: LORazepam 2 MG/ML VIAL IVPUSH (12:05)
[2021-11-10 14:15] VITALS: BP 147/96; PULSE 112; RESP 14; TEMP 37; O2SAT 94
== END 2021-11-10 14:42 | disposition home or self-care (01) ==
PROVIDERS: Physician Assistant; Emergency Provider Internal Medicine
DX: F10.220 Alcohol dependence with intoxication, uncomplicated (principal); Y90.8 Blood alcohol level of 240 mg/100 ml or more; R00.0 Tachycardia, unspecified; I10 Essential (primary) hypertension; Z20.822 Contact with and (suspected) exposure to COVID-19; F17.200 Nicotine dependence, unspecified, uncomplicated
CPT/HCPCS: 36415; 80053; 80307; 81001; 82077; 83690; 83735; 85025; 87635; 96361; 96374; 96375; 99285; J2060; J2405